=== PATIENT | female | born 1965 | race Caucasian/White ===

== ENCOUNTER 2020-08-07 21:10 | Emergency (ER) | payer OTHER ==
[2020-08-07 21:20] VITALS: TEMP 98; BMI 22.9
[2020-08-07] MEDS ORDERED: ACETAMINOPHEN 325 MG TABLET (FP) PO ONE (22:01)
[2020-08-07] MEDS ORDERED: MAG HYDROX/AL HYDROX/SIMETH -MYLANTA- ORAL SUSPENSION PO ONE (22:01)
[2020-08-07] MEDS ORDERED: ONDANSETRON 4 MG/2 ML VIAL IVPUSH ONE (22:01)
[2020-08-07] MEDS ORDERED: FAMOTIDINE 20 MG/50 ML IVPB 20 MG/50 ML MG IVPB ONE ×2 (22:01→22:18)
[2020-08-07] MEDS ORDERED: ONDANSETRON 4 MG/2 ML VIAL ONE (22:18)
[2020-08-07] MEDS ORDERED: MAG HYDROX/AL HYDROX/SIMETH 30 ML UNIT-DOSE CUP ONE (22:18)
[2020-08-07] MEDS ORDERED: ACETAMINOPHEN 325 MG TABLET (FP) ONE (22:18)
[2020-08-07 22:30] LABS: BASO % 1.1 % (0-2.0); EOS % 1.5 % (0-4.5); HEMATOCRIT 35.7 % (32.4-45.2); HEMOGLOBIN 12.2 GM/dL (10.7-15.3); MCH 30.8 pg (25.7-33.7); MCHC 34.1 g/dl (32.0-36.0); MEAN CELL VOLUME 90.4 fl (80-96); MEAN PLT VOLUME 9.6 fl (7.5-11.1); MONO % 6.4 % (3.8-10.2); PLATELET COUNT 233 10^3/uL (134-434); RBC 3.96 M/mm3 (3.60-5.2); RDW 12.8 % (11.6-15.6); WHITE BLOOD COUNT 7.3 K/mm3 (4.0-10.0)
[2020-08-07 22:49] LABS: CHLORIDE 107 mmol/L (98-107); SODIUM 141 mmol/L (136-145)
[2020-08-07 22:51] LABS: CALCIUM 9.5 mg/dL (8.5-10.1)
[2020-08-07 22:52] LABS: ALBUMIN 4.1 g/dl (3.4-5.0); ANION GAP 9 MMOL/L (8-16); BLOOD UREA NITROGEN 27.9 mg/dL (7-18); CO2 24 mmol/L (21-32); GLUCOSE,RANDOM 107 mg/dL (74-106); LIPASE 203 U/L (73-393)
[2020-08-07 22:55] LABS: CREATININE 1.1 mg/dL (0.55-1.3); SGOT/AST 15 U/L (15-37); SGPT/ALT 21 U/L (13-61)
[2020-08-07 22:56] LABS: BILIRUBIN,TOTAL 0.3 mg/dL (0.2-1)
[2020-08-07 22:57] LABS: TOT PROT 6.6 g/dl (6.4-8.2)
[2020-08-07 22:58] LABS: ALK PHOS 79 U/L (45-117)
[2020-08-08 03:02] VITALS: BP 122/67; PULSE 60
== END 2020-08-08 03:01 | disposition home or self-care (01) ==
LOC: JER 21:10
PROC: 3E033GC Introduction of Other Therapeutic Substance into Peripheral Vein, Percutaneous Approach (ICD-10-PCS; principal; 2020-08-07)
PROC: 3E033GC Introduction of Other Therapeutic Substance into Peripheral Vein, Percutaneous Approach (ICD-10-PCS; 2020-08-07)
DX: R07.9 Chest pain, unspecified (principal)
CPT/HCPCS: 36415; 71045-TC-FY; 80053; 83690; 84484; 85025; 93005; 93010; 93970-TC; 99285-25